=== PATIENT | female | born 1990 | race Caucasian/White ===

== ENCOUNTER → 2018-02-15 | Outpatient (CLI) | payer OTHER | LOC: LAC 12:02 | DX: Z39.1 Encounter for care and examination of lactating mother (principal); Z71.89 Other specified counseling ==

== ENCOUNTER → 2018-08-02 | Outpatient (CLI) | payer OTHER ==
--- NOTE | 2018-08-02 12:49 | NUR ---
Pt, Jimena Nuñez, presents to walk-in clinic with question regarding a rash on her areola. She is currently nursing her 11 month old baby, no pumping is being utilized. Pt has rash on the left breast between the 3 and 6 positions with a few raised red spots. On the right breast she has a red spot, near the 3 oclock position only a few milimeters in diameter. Pt suspects the rash is yeast, LC concurs. Home treatments provided with instructions to monitor improvement. Questions invited and answered.
== END ==
LOC: LAC 11:31
DX: Z39.1 Encounter for care and examination of lactating mother (principal); Z71.89 Other specified counseling

== ENCOUNTER → 2020-12-19 16:30 | Inpatient (IN) | payer OTHER ==
[2020-12-18] VITALS (26 sets, daily range): BP systolic 101–123; BP diastolic 58–80; PULSE 73–101; TEMP 97.7–98.6
[2020-12-18 07:26] LABS: BASO % 0.3 % (0.0-2.0); EOS # 0.1 (0.0-0.7); EOS % 0.9 % (0-4.0); GRAN # 6.2 (1.4-6.5); GRAN % 67.2 % (42.2-75.2); HEMATOCRIT 39.9 % (37.0-47.0); HEMOGLOBIN 13.6 g/dl (12.5-16.0); LYMPH # 2.2 (1.2-3.4); MEAN CELL VOLUME 98 fl (80.0-100.0); MEAN CORPUSCULAR HEMOGLOBIN 33 pg (27.0-31.0); MEAN CORPUSCULAR HGB CONC 34 g/dl (33.0-37.0); MEAN PLATELET VOLUME 10.3 fl (7.4-10.4); MONO # 0.6 (0.1-0.6); MONO % 6.2 % (1.7-9.3); PLATELET COUNT 193 K/mm3 (130-400); RED BLOOD COUNT 4.07 M/mm3 (4.10-5.30); REDCELL DISTRIBUTION WIDTH-CV 13.6 % (11.5-14.5)
[~2020-12-19] VITALS: Ht 162.6 cm; Wt 73.6 kg
[2020-12-19 03:45] VITALS: BP 99/54; PULSE 67; TEMP 97.9
[2020-12-19 08:30] VITALS: BP 104/66; PULSE 83; TEMP 97.6
[~2020-12-19 16:30] MED LIST: PRENATAL
== END | disposition home or self-care (01) | DRG 807 ==
LOC: SDCO 12-13 10:00 → EDSTATUS 12-15 10:00 → SDCO 12-15 10:00 → LDR 12-18 06:17 → OB 12-18 06:17 → LDR 12-18 10:00 → OB 12-18 14:12
PROVIDERS: ADMIT Obstetrics & Gynecology
PROC: 10E0XZZ Delivery of Products of Conception, External Approach (ICD-10-PCS; principal; 2020-12-18)
PROC: 0HQ9XZZ Repair Perineum Skin, External Approach (ICD-10-PCS; 2020-12-18)
DX: O48.0 Post-term pregnancy (principal); Z37.0 Single live birth; Z3A.42 42 weeks gestation of pregnancy
CPT/HCPCS: J2540; J2590; J7120

== ENCOUNTER → 2021-01-13 | Outpatient (CLI) | payer OTHER ==
--- NOTE | 2021-01-13 16:09 | NUR ---
Pt, Jimena Nuñez, presents for outpatient consult with 26 day old baby boy, Alden Nuñez, for a evaluation. She reports that Alden acts gassy a lot after feedings, has large burps, pulls off during feedings, and is a frequent "snacker", eating only 5-10 minutes but every couple hours. She also reports that has has recently had some mucus in his stools, but generally is not a spitty baby. Alden was born on [birth year] and weighed 8# 2.9oz (3710 gms). Today Alden weighs 9# 13.5oz (4466 gms). Pt latches Alden to the right breast, does well, but also coached on compression of areola under his lip a little further as Alden has a suck blister on his top lip. After nursing only 7 minutes Alden pushes off the breast and begins his fussy behavior. He burps and she offer the breast a few more times before he is weighed. Post feed gain is 50gms. After several burping/comfort measures he briely latches to the left breast but only has a gain of 2 additional grams. Pt and LC try several burping maneuvers, but he does not show any interest in feeding more. Eventually he rests on his back on the scale and he does not fussy. When he is picked back up to go home, he gets fussy again. LC rules out an over or under supply of milk that is causing his behavior, although with the fast feeding he may be taking in more air. Discussed possible use of gripe water or mylicon drops for comfort measures, following the dosing directions on the bottle. Diary elimination diet was also reviewed, pt advised to wait until after his next appt before making this modification to get his doctor's opinion. Alden has his one month appt with Dr. Beth in four days, advised to continue trying comfort measure and discuss with MD at that appointment. Overall, Alden appears healthy. Pt advised to continue ad migue. Questions invited and answered.
== END ==
LOC: LAC 13:34
DX: Z39.1 Encounter for care and examination of lactating mother (principal); Z71.89 Other specified counseling